=== PATIENT | male | born 2000 | race African-American/Black ===

== ENCOUNTER → 2019-03-21 | Outpatient (CLI) | payer OTHER ==
--- NOTE | 2019-03-21 14:29 | REP ---
TRIPLE PHASE BONE SCAN ANKLES AND FEET: Following the intravenous administration of 22 millicuries technetium 99m MDP, immediate flow images are obtained of the ankles and feet in the anterior and posterior projections. Immediate blood pool and 2.5-hour delayed images are also performed of the ankles and feet in multiple projections. There is symmetrical blood flow and blood pooling in the ankles and feet. No abnormal uptake is seen on delayed images in the osseous structures over the bilateral ankles and feet. IMPRESSION: Negative triple phase bone scan ankles and feet. No evidence of occult fracture. Electronically Signed by Ministerio Gardner MD 03/22/2019 09:52 A
== END ==
LOC: M RAD 02-28 11:17
PROVIDERS: ATTEND Physician Assistant
DX: M25.571 Pain in right ankle and joints of right foot (principal)

== ENCOUNTER 2019-05-01 14:30 | Emergency (ER) | payer OTHER ==
[~2019-05-01] VITALS: Ht 167.6 cm; Wt 76.0 kg
[2019-05-01] MEDS ORDERED: KETOROLAC TROMETHAMINE 10 MG TAB PO ONE (15:45)
[2019-05-01] MEDS ORDERED: ONDANSETRON 4 MG ORAL DISINTEGRATING TAB (Q0162 PER 1MG) PO ONE (15:45)
--- NOTE | 2019-05-01 16:01 | REP ---
Head CT without contrast: History: Trauma. Dizziness. Comparison study: No comparison study. CT findings: Bone window settings demonstrate an intact bony calvarium. There is no evidence of skull fracture or incidental bony calvarial lesion. The visualized paranasal sinuses appear clear. No intraorbital abnormality is seen. On soft tissue window setting images; the lateral, third, and fourth ventricles are normal in size and position. Gardner-white differentiation pattern is normal above and below the tentorium. There are is no evidence of intracranial hemorrhage. No mass, edema, infarction, or midline shift is seen. No extra-axial fluid collection is appreciated. Impression: Negative noncontrast head CT. Electronically Signed by Rivas Fisher MD 05/01/2019 03:59 P
--- NOTE | 2019-05-01 16:18 | REP ---
CT study of the cervical spine without contrast: History: Trauma. Dizziness. Technique: Helical scanning is acquired and overlapping 2 mm high resolution axial images were generated and reviewed at bone and soft tissue window settings. Coronal and sagittal multiplanar re-formations images are generated. CT findings: There is no evidence of cervical spine element fracture. No skull base fracture is seen. Cervical vertebral body heights are preserved. There is some cervical spine straightening. Alignment is normal. Facet joints are normally aligned bilaterally at each cervical level on multiplanar re-formations images. There is no evidence of intraspinal or paraspinal hematoma. No extra vertebral abnormality is seen. Impression: Straightening, otherwise negative CT study of the cervical spine without contrast. No fracture seen. Electronically Signed by Rivas Fisher MD 05/01/2019 04:24 P
[2019-05-01] MEDS ORDERED: ONDA4TAB6 PO (16:54)
[2019-05-01 16:58] VITALS: BP 125/69
== END 2019-05-01 16:59 | disposition home or self-care (01) ==
LOC: M ED 14:30
DX: S06.0X0A Concussion without loss of consciousness, initial encounter (principal); W22.8XXA Striking against or struck by other objects, initial encounter; Y92.019 Unspecified place in single-family (private) house as the place of occurrence of the external cause; F17.290 Nicotine dependence, other tobacco product, uncomplicated
CPT/HCPCS: 70450; 72125; 99283; Q0162